=== PATIENT | male | born 1985 | race Caucasian/White ===

== ENCOUNTER 2016-10-14 17:25 | Emergency (ER) | payer MEDICAID ==
[2016-10-14 17:36] VITALS: BP 158/104
[2016-10-14] MEDS ORDERED: Ketorolac 30 MG/ML SDV IVPUSH ONE (17:37)
--- NOTE | 2016-10-14 17:39 | EDM.PDOC ---
[id number] KIDNEY STONE Time Seen by Provider: 10/14/16 17:38 Source of Information: Reports: Patient History Limitations: Reports: No limitations - History of Present Illness INITIAL COMMENTS - FREE TEXT/NARRATIVE: 30-year-old male with a history of renal stones presents with 1-1/2 hours of intense sudden onset left flank pain radiating around to the left groin. Some nausea but no vomiting. No dysuria. Onset: sudden Duration: Hour(s): (One and one half hours ago) Associated Symptoms: Reports: denies other symptoms Left Lower Abdomen Pain Score (Numeric/FACES): 10 - Related Data Allergies Allergy/AdvReac Type Severity Reaction Status Date / Time No Known Allergies Allergy Verified 10/14/16 17:37 Home Meds: Home Meds Venlafaxine HCl [Venlafaxine ER] 1 tab PO DAILY 10/12/15 [History] Gabapentin [Neurontin] 300 mg PO BID 10/14/16 [History] Meloxicam [Meloxicam] 1 tab PO DAILY 10/14/16 [History] Past Medical History - Past Health History Medical/Surgical History: Denies Medical/Surgical History Genitourinary History: Reports: Renal calculus Psychiatric History: Reports: Depression - Infectious Disease History Infectious Disease History: Reports: Chicken pox, Measles - Past Surgical History Other Musculoskeletal Surgeries/Procedures:: left thumb Social & Family History - Tobacco Use Smoking Status *Q: Never Smoker Years of Tobacco use: 10 Second Hand Smoke Exposure: No - Alcohol Use Days Per Week of Alcohol Use: 0 - Recreational Drug Use Recreational Drug Use: No - Living Situation & Occupation Living situation: Reports: Occupation: employed (lives in [place], [place].) ED ROS GENERAL - Review of Systems Review Of Systems: See Below Constitutional: Denies: fever, chills Respiratory: Denies: Shortness of Breath, Cough Cardiovascular: Denies: Chest pain GI/Abdominal: Reports: Abdominal pain, Nausea. Denies: Vomiting : Reports: flank pain, urgency Musculoskeletal: Reports: no symptoms Skin: Reports: no symptoms Neurological: Reports: No Symptoms Psychiatric: Reports: No symptoms ED EXAM, GENERAL - Physical Exam Exam: See Below Exam Limited By: No limitations General Appearance: alert, anxious, moderate distress Respiratory/Chest: no respiratory distress Cardiovascular: regular rate, rhythm GI/Abdominal: soft, non tender Neurological: alert, oriented Psychiatric: anxious Skin Exam: Warm, Dry Course - Vital Signs Last Recorded V/S: Last Vital Signs Temp 96.4 F 10/14/16 17:51 Pulse 67 10/14/16 17:51 Resp 18 10/14/16 17:51 BP 158/104 H 10/14/16 17:51 Pulse Ox 97 10/14/16 17:51 - Orders/Labs/Meds Meds: Medications Discontinued Medications Generic Name Dose Route Start Last Admin Trade Name Duane PRN Reason Stop Dose Admin Ketorolac Tromethamine 30 mg 10/14/16 17:37 10/14/16 17:46 Toradol IVPUSH 10/14/16 17:38 30 mg ONETIME ONE Administration Tamsulosin HCl 0.4 mg 10/14/16 18:14 10/14/16 18:18 Flomax PO 10/14/16 18:15 0.4 mg ONETIME ONE Administration - Re-Assessments/Exams Free Text/Narrative Re-Assessment/Exam: 10/14/16 18:17 An IV was started and the patient was given 30 mg of Toradol IV. He was sent back for a CT scan which confirmed a left distal ureteral stone with a small amount of hydronephrosis. His symptoms were almost resolved when he came back from CT, he was given one oral Flomax 0.4 mg. 10/14/16 18:45 CT confirmed a punctate stone in the distal left ureter. Patient started developing some slight pressure again so he was given 10 ketorolac doses to take orally 3 times a day as well as 10 hydrocodone for extra pain control. Encouraged him to drink lots of water, and return if worsening or concerns. Departure - Departure Time of Disposition: 19:03 Disposition: Home, Self-Care 01 Condition: good Clinical Impression: Ureteric colic Instructions: Kidney Stones, [id number] Referrals: Speedy Salcedo MD [Primary Care Provider] - Forms: ED Department Discharge Care Plan Goals: Drink lots of water, take ketorolac 10 mg every 6 hours until pain is gone and add stronger pain medication if needed. Return to ER at any time if you feel you are worsening or consider recheck in 2 days if not significantly improving.
[2016-10-14] MEDS ORDERED: Tamsulosin 0.4 MG Cap.ER PO ONE (18:14)
== END 2016-10-14 19:03 | disposition home or self-care (01) ==
LOC: JP.ED 17:25
DX: N20.1 Calculus of ureter (principal); F32.9 Major depressive disorder, single episode, unspecified; Z79.899 Other long term (current) drug therapy
CPT/HCPCS: 74176; 96374; 99284; A9270; J1885

== ENCOUNTER 2017-03-22 08:10 | Emergency (ER) | payer MEDICAID ==
[2017-03-22 08:46] VITALS: BP 159/97
--- NOTE | 2017-03-22 08:51 | EDM.PDOC ---
ED HPI GENERAL MEDICAL PROBLEM - General Chief Complaint: Upper Extremity Injury/Pain Stated Complaint: INJURY ON LEFT THUMB Time Seen by Provider: 03/22/17 08:41 Source of Information: Reports: Patient History Limitations: Reports: No Limitations - History of Present Illness INITIAL COMMENTS - FREE TEXT/NARRATIVE: pt arrived with a painful left thumb aftr catching it between the conveyer belt and the wheel. He has pain which extends all the way down into the thumb. Onset: Today Duration: Hour(s):, Other (pt is having alot of pain in the thumb. ) Location: Reports: Upper Extremity, Left left thumb Pain Score (Numeric/FACES): 9 - Related Data Allergies Allergy/AdvReac Type Severity Reaction Status Date / Time No Known Allergies Allergy Verified 10/14/16 17:37 Home Meds: Home Meds Venlafaxine HCl [Venlafaxine ER] 1 tab PO DAILY 10/12/15 [History] Gabapentin [Neurontin] 300 mg PO BID 10/14/16 [History] Meloxicam [Meloxicam] 1 tab PO DAILY 10/14/16 [History] Acetaminophen/oxyCODONE [Percocet 325-5 MG] 1 tab PO ASDIRECTED PRN 03/22/17 [ History] Past Medical History - Past Health History Medical/Surgical History: Denies Medical/Surgical History HEENT History: Reports: Impaired Vision Cardiovascular History: Reports: Hypertension Genitourinary History: Reports: Renal Calculus Psychiatric History: Reports: Depression - Infectious Disease History Infectious Disease History: Reports: Chicken Pox, Measles - Past Surgical History Other Musculoskeletal Surgeries/Procedures:: left thumb Social & Family History - Tobacco Use Smoking Status *Q: Current Every Day Smoker Years of Tobacco use: 10 Packs/Tins Daily: 0.5 Second Hand Smoke Exposure: No - Caffeine Use Caffeine Use: Reports: Coffee, Soda - Alcohol Use Days Per Week of Alcohol Use: 0 - Recreational Drug Use Recreational Drug Use: No - Living Situation & Occupation Living situation: Reports: Occupation: Employed Review of Systems - Review of Systems Review Of Systems: See Below Constitutional: Reports: No Symptoms Eyes: Reports: No Symptoms Ears: Reports: No Symptoms Nose: Reports: No Symptoms Mouth/Throat: Reports: No Symptoms Respiratory: Reports: No Symptoms Cardiovascular: Reports: No Symptoms GI/Abdominal: Reports: No Symptoms Genitourinary: Reports: No Symptoms Musculoskeletal: Reports: Other (PAIN IN THE LEFT THUMB. ) Skin: Reports: No Symptoms ED EXAM, GENERAL - Physical Exam Exam: See Below Free Text/Narrative:: PT ARRIVED WITH PAIN IN THE LEFT THUMB AFTER AN INJURY AT WORK. Exam Limited By: No Limitations General Appearance: Alert, Anxious, Mild Distress Ears: Normal TMs Nose: Normal Inspection Throat/Mouth: Normal Inspection Head: Atraumatic Neck: Normal Inspection Respiratory/Chest: No Respiratory Distress Extremities: Other (LEFT THUMB IS SWOLLEN AND IS VERY TENDER TO PALPATE AT THE mp JOINT AREA. ) Neurological: Alert, Oriented, Normal Cognition Psychiatric: Normal Affect Course - Vital Signs Last Recorded V/S: Last Vital Signs Temp 35.6 C 03/22/17 08:23 Pulse 92 03/22/17 08:23 Resp 15 03/22/17 08:23 BP 159/97 H 03/22/17 08:34 Pulse Ox 96 03/22/17 08:23 - Orders/Labs/Meds Orders: Active Orders 24 hr Category Date Time Status Hand Comp Min 3V Lt [CR] Stat Exams 03/22/17 08:40 Taken Acetaminophen/oxyCODONE [Percocet 325-5 MG] Med 03/22/17 09:37 Once 1 tab PO ONETIME ONE Meds: Medications Discontinued Medications Generic Name Dose Route Start Last Admin Trade Name Duane PRN Reason Stop Dose Admin Oxycodone/Acetaminophen 1 tab 03/22/17 09:37 Percocet 325-5 Mg PO 03/22/17 09:38 ONETIME ONE - Re-Assessments/Exams Free Text/Narrative Re-Assessment/Exam: 03/22/17 09:54 XRAY WAS OBTAINED. tHE XRAY DID NOT REVEAL ANY FRACTURE. tHE HAND WAS SPLINTED FOR COMFORT. hE WILL UASE THE SPLINT FOR THE NEXT 2 DAYS. Departure - Departure Time of Disposition: 09:26 Disposition: Home, Self-Care 01 Condition: Fair Clinical Impression: Sprain of left thumb - Discharge Information Instructions: Contusion, [id number] Referrals: Speedy Salcedo MD [Primary Care Provider] - Forms: ED Department Discharge Care Plan Goals: elevaVATE HAND, COOL PACK, TRAMODOL 50MG Q6H PRN FOR PAIN, uSE THE SPLINT FOR COMFORT FOR THE NEXT 2 DAYS THEN REMOVE AND START SOAKING IN WARM WATER , DO RANGE OF MOTION AND COOL PACK. - My Orders Last 24 Hours: My Active Orders 03/22/17 08:40 Hand Comp Min 3V Lt [CR] Stat 03/22/17 09:37 Acetaminophen/oxyCODONE [Percocet 325-5 MG] 1 tab PO ONETIME ONE - Assessment/Plan Last 24 Hours: My Active Orders 03/22/17 08:40 Hand Comp Min 3V Lt [CR] Stat 03/22/17 09:37 Acetaminophen/oxyCODONE [Percocet 325-5 MG] 1 tab PO ONETIME ONE
[2017-03-22] MEDS ORDERED: Acetaminophen/oxyCODONE 325-5 MG Tab PO ONE (09:37)
--- NOTE | 2017-03-24 09:43 | CR ---
No fracture or dislocation.
== END 2017-03-22 09:46 | disposition home or self-care (01) ==
LOC: JP.ED 08:10
DX: S63.602A Unspecified sprain of left thumb, initial encounter (principal); I10 Essential (primary) hypertension; F17.210 Nicotine dependence, cigarettes, uncomplicated; Z79.899 Other long term (current) drug therapy; W23.0XXA Caught, crushed, jammed, or pinched between moving objects, initial encounter
CPT/HCPCS: 73130; 99284; A9270; 99283

== ENCOUNTER 2018-03-18 19:35 | Emergency (ER) | payer MEDICAID ==
[2018-03-18 19:56] VITALS: BP 144/106
[2018-03-18] MEDS ORDERED: Ketorolac 60 MG/2 ML SDV IM ONE (20:10)
--- NOTE | 2018-03-18 20:16 | EDM.PDOC ---
ED HPI GENERAL MEDICAL PROBLEM - General Chief Complaint: Lower Extremity Injury/Pain Stated Complaint: RT KNEE PAIN Time Seen by Provider: 03/18/18 20:10 Source of Information: Reports: Patient, Old Records History Limitations: Reports: No Limitations - History of Present Illness INITIAL COMMENTS - FREE TEXT/NARRATIVE: 32 yo male knelt on a rock 2 days ago and has R anterior knee pain since. He did not contact his provider or take anything for the pain. Is here now for eval. Onset: Sudden Onset Date: 03/16/18 Duration: Day(s): (2), Constant Location: Reports: Lower Extremity, Right Quality: Reports: Sharp Severity: Moderate Improves with: Reports: Rest Worsens with: Reports: Movement Context: Reports: Trauma (see HPI) Associated Symptoms: Reports: No Other Symptoms Treatments CLIENT TECHNICAL PROFESSIONAL: Reports: Other (see below) (none) Right Knee Pain Score (Numeric/FACES): 8 - Related Data Allergies Allergy/AdvReac Type Severity Reaction Status Date / Time No Known Allergies Allergy Verified 03/18/18 20:09 Home Meds: Home Meds Gabapentin [Neurontin] 300 mg PO BID 10/14/16 [History] Meloxicam 1 tab PO DAILY 10/14/16 [History] Venlafaxine HCl [Venlafaxine ER] 150 mg PO DAILY 03/18/18 [History] Past Medical History - Past Health History Medical/Surgical History: Denies Medical/Surgical History HEENT History: Reports: Impaired Vision Cardiovascular History: Reports: Hypertension Genitourinary History: Reports: Renal Calculus Psychiatric History: Reports: Depression - Infectious Disease History Infectious Disease History: Reports: Chicken Pox, Measles - Past Surgical History Other Musculoskeletal Surgeries/Procedures:: left thumb Social & Family History - Caffeine Use Caffeine Use: Reports: Coffee, Soda - Living Situation & Occupation Living situation: Reports: Occupation: Employed Review of Systems - Review of Systems Review Of Systems: See Below Constitutional: Reports: No Symptoms Musculoskeletal: Reports: Other (R anterior knee pain) Skin: Reports: No Symptoms Neurological: Reports: No Symptoms ED EXAM, GENERAL - Physical Exam Exam: See Below Exam Limited By: No Limitations General Appearance: Alert, WD/WN, No Apparent Distress, Obese Extremities: Normal Inspection, Normal Range of Motion, No Pedal Edema, Other ( tender over R anterior knee). No: Non-Tender, Joint Swelling, Increased Warmth , Redness Neurological: Alert, Oriented, CN II-XII Intact, Normal Cognition, No Motor/ Sensory Deficits Psychiatric: Normal Affect, Normal Mood Skin Exam: Warm, Dry, Intact, Normal Color, No Rash Course - Vital Signs Last Recorded V/S: Last Vital Signs Temp 35.8 C 03/18/18 20:15 Pulse 118 H 03/18/18 20:15 Resp 16 03/18/18 20:15 BP 144/106 H 03/18/18 20:15 Pulse Ox 94 L 03/18/18 20:15 - Orders/Labs/Meds Orders: Active Orders 24 hr Category Date Time Status Knee 3V Rt [CR] Stat Exams 03/18/18 20:10 Ordered Meds: Medications Discontinued Medications Generic Name Dose Route Start Last Admin Trade Name Duane PRN Reason Stop Dose Admin Ketorolac Tromethamine 60 mg 03/18/18 20:10 03/18/18 20:26 Toradol IM 03/18/18 20:11 60 mg ONETIME ONE Administration - Radiology Interpretation Free Text/Narrative:: R knee [id number] Departure - Departure Time of Disposition: 20:28 Disposition: Home, Self-Care 01 Condition: Good Clinical Impression: Traumatic ecchymosis of right knee Qualifiers: Encounter type: initial encounter Qualified Code(s): S80.01XA - Contusion of right knee, initial encounter - Discharge Information *PRESCRIPTION DRUG MONITORING PROGRAM REVIEWED*: Not Applicable *COPY OF PRESCRIPTION DRUG MONITORING REPORT IN PATIENT JUAN: Not Applicable Instructions: Contusion, [id number] Referrals: Speedy Salcedo MD [Primary Care Provider] - Forms: ED Department Discharge Additional Instructions: You may take acetaminophen anytime, follow package directions. After 1 am tonight you may take either Aleve or ibuprofen per package instructions. Avoid kneeling on that right knee. Follow up with your doctor as needed. Ice the affected area several times daily. - My Orders Last 24 Hours: My Active Orders 03/18/18 20:10 Knee 3V Rt [CR] Stat - Assessment/Plan Last 24 Hours: My Active Orders 03/18/18 20:10 Knee 3V Rt [CR] Stat
[2018-03-18] MEDS ORDERED: Ketorolac 60 MG/2 ML SDV ONE (20:24)
--- NOTE | 2018-03-19 08:56 | CR ---
Knee 3V Rt CLINICAL HISTORY: Pain FINDINGS: No acute fracture or dislocation is noted. There are no osseous lesions. Articular surfaces are smooth Impression: Negative
== END 2018-03-18 21:08 | disposition home or self-care (01) ==
LOC: JP.ED 19:35
DX: S80.01XA Contusion of right knee, initial encounter (principal); I10 Essential (primary) hypertension; Z79.899 Other long term (current) drug therapy; X58.XXXA Exposure to other specified factors, initial encounter
CPT/HCPCS: 73562; 96372; 99284; J1885

== ENCOUNTER 2019-02-17 00:09 | Observation (INO) | payer MEDICAID ==
[2019-02-17] MEDS ORDERED: Ketorolac 60 MG/2 ML SDV IM ONE (00:25)
[2019-02-17] MEDS ORDERED: HYDROmorphone 1 MG/ML Syringe IVPUSH ONE ×2 (00:28→00:48)
[2019-02-17] MEDS ORDERED: Sodium Chloride 0.9% 10 ML Syringe FLUSH PRN (00:28)
[2019-02-17] MEDS ORDERED: Ketorolac 30 MG/ML SDV IVPUSH ONE (00:29)
--- NOTE | 2019-02-17 00:35 | EDM.PDOC ---
ED HPI GENERAL MEDICAL PROBLEM - General Chief Complaint: Lower Extremity Injury/Pain Stated Complaint: PAIN IN LEFT HIP Time Seen by Provider: 02/17/19 00:20 Source of Information: Reports: Patient, Old Records, RN History Limitations: Reports: No Limitations - History of Present Illness INITIAL COMMENTS - FREE TEXT/NARRATIVE: 33 yo male here with L low back pain that radiates down his L leg. Pain came on abruptly as he was getting off the couch. No hx of the same. Has had kidney stones, this feels different. Can't move his left leg or bear wt due to the pain. Onset: Sudden Onset Date: 02/16/19 Duration: Minutes:, Constant Location: Reports: Back, Lower Extremity, Left Quality: Reports: Ache, Burning Severity: Severe Improves with: Reports: Rest Worsens with: Reports: Movement Context: Reports: Other (See HPI) Associated Symptoms: Reports: Diaphoresis. Denies: Fever/Chills Treatments PROTECTIVE SERVICES OFFICER: Reports: Other (see below) (none) Left Hip Pain Score (Numeric/FACES): 10 - Related Data Allergies Allergy/AdvReac Type Severity Reaction Status Date / Time No Known Allergies Allergy Verified 03/18/18 20:09 Home Meds: Home Meds Venlafaxine HCl [Venlafaxine ER] 225 mg PO DAILY 03/18/18 [History] Gabapentin [Neurontin] 300 mg PO TID 02/17/19 [History] Past Medical History - Past Health History Medical/Surgical History: Denies Medical/Surgical History HEENT History: Reports: Impaired Vision Other HEENT History: wears glasses Cardiovascular History: Reports: Hypertension Respiratory History: Reports: Sleep Apnea Genitourinary History: Reports: Renal Calculus Musculoskeletal History: Reports: Back Pain, Chronic, Fracture Psychiatric History: Reports: Depression - Infectious Disease History Infectious Disease History: Reports: Chicken Pox, Measles - Past Surgical History GI Surgical History: Reports: Appendectomy Other GI Surgeries/Procedures: may 17 2018 Other Musculoskeletal Surgeries/Procedures:: left thumb, right elbow Social & Family History - Family History Family Medical History: Noncontributory - Tobacco Use Smoking Status *Q: Current Every Day Smoker Years of Tobacco use: 15 Packs/Tins Daily: 0.5 - Caffeine Use Caffeine Use: Reports: None - Recreational Drug Use Recreational Drug Use: No - Living Situation & Occupation Living situation: Reports: Occupation: Employed Review of Systems - Review of Systems Review Of Systems: See Below Constitutional: Reports: Diaphoresis Musculoskeletal: Reports: Back Pain, Leg Pain (radiates down the L leg.) Skin: Reports: Diaphoresis (sweating from the pain) Neurological: Reports: Gait Disturbance (Can't walk due to the pain.) ED EXAM, GENERAL - Physical Exam Exam: See Below Exam Limited By: Other (Severe pain, morbid obesity) General Appearance: Alert, WD/WN, Moderate Distress, Obese Eye Exam: Bilateral Eye: Normal Inspection Ears: Normal External Exam, Normal Canal, Hearing Grossly Normal Ear Exam: Bilateral Ear: Auricle Normal, Canal Normal Nose: Normal Inspection, No Blood Throat/Mouth: Normal Inspection, Normal Lips, Normal Oropharynx, Normal Voice, No Airway Compromise Head: Atraumatic, Normocephalic Neck: Normal Inspection Respiratory/Chest: No Respiratory Distress, Lungs Clear, Normal Breath Sounds, No Accessory Muscle Use Cardiovascular: Regular Rate, Rhythm, No Edema Back Exam: Normal Inspection, Paraspinal Tenderness (L paraspinous), Vertebral Tenderness (lumbar). No: CVA Tenderness (R), CVA Tenderness (L) Extremities: Normal Inspection, Normal Range of Motion, Non-Tender, No Pedal Edema Neurological: Alert, Oriented, CN II-XII Intact, Normal Cognition, No Motor/ Sensory Deficits Psychiatric: Normal Affect, Normal Mood, Anxious Skin Exam: Warm, Intact, Normal Color, No Rash, Diaphoretic (sweating) Course - Vital Signs Text/Narrative:: Dr. Matias hurt @ 566 Last Recorded V/S: Last Vital Signs Temp 35.9 C 02/17/19 00:18 Pulse 105 H 02/17/19 00:18 Resp 20 02/17/19 00:18 BP Pulse Ox 98 02/17/19 00:18 - Orders/Labs/Meds Orders: Active Orders 24 hr Category Date Time Status Sodium Chloride 0.9% [Saline Flush] Med 02/17/19 00:28 Active 10 ml FLUSH ASDIRECTED PRN Saline Lock Insert [OM.PC] Routine Oth 02/17/19 00:28 Ordered Medication Orders Sodium Chloride (Saline Flush) 10 ml FLUSH ASDIRECTED PRN PRN Reason: Keep Vein Open Last Admin: 02/17/19 00:38 Dose: 10 ml Meds: Medications Generic Name Dose Route Start Last Admin Trade Name Aryanq PRN Reason Stop Dose Admin Sodium Chloride 10 ml 02/17/19 00:28 02/17/19 00:38 Saline Flush FLUSH 10 ml ASDIRECTED PRN Administration Keep Vein Open Discontinued Medications Generic Name Dose Route Start Last Admin Trade Name Duane PRN Reason Stop Dose Admin Hydromorphone HCl 1 mg 02/17/19 00:28 02/17/19 00:42 Dilaudid IVPUSH 02/17/19 00:29 1 mg ONETIME ONE Administration Hydromorphone HCl 1 mg 02/17/19 00:48 Dilaudid IVPUSH 02/17/19 00:49 ONETIME ONE Ketorolac Tromethamine 60 mg 02/17/19 00:25 02/17/19 00:41 Toradol IM 02/17/19 00:26 Not Given ONETIME ONE Ketorolac Tromethamine 30 mg 02/17/19 00:29 02/17/19 00:39 Toradol IVPUSH 02/17/19 00:30 30 mg ONETIME ONE Administration - Radiology Interpretation Free Text/Narrative:: lumar spine X-rays-loss of normal lumbar lordosis Departure - Departure Time of Disposition: 01:40 Disposition: Refer to Observation Condition: Fair Clinical Impression: Intractable low back pain Low back pain Qualifiers: Chronicity: acute Back pain laterality: left Sciatica presence: with sciatica Sciatica laterality: sciatica of left side Qualified Code(s): M54.42 - Lumbago with sciatica, left side - Discharge Information *PRESCRIPTION DRUG MONITORING PROGRAM REVIEWED*: No *COPY OF PRESCRIPTION DRUG MONITORING REPORT IN PATIENT JUAN: No Referrals: Speedy Salcedo MD [Primary Care Provider] - Forms: ED Department Discharge - My Orders Last 24 Hours: My Active Orders 02/17/19 00:28 Sodium Chloride 0.9% [Saline Flush] 10 ml FLUSH ASDIRECTED PRN Saline Lock Insert [OM.PC] Routine - Assessment/Plan Last 24 Hours: My Active Orders 02/17/19 00:28 Sodium Chloride 0.9% [Saline Flush] 10 ml FLUSH ASDIRECTED PRN Saline Lock Insert [OM.PC] Routine
--- NOTE | 2019-02-17 01:07 | CRLCR ---
INDICATION: Low back pain with radiation TECHNIQUE: Lumbar spine radiograph 3 views COMPARISON: None FINDINGS: Moderate degradation of image quality noted due to body habitus. Bone: No acute fractures or aggressive bone lesions are identified. Alignment is normal. Disc: The disc spaces are unremarkable in appearance. The facet joints are unremarkable. Soft tissue: Unremarkable. No radiopaque foreign bodies are seen. IMPRESSION: 1. No acute osseous injuries or abnormalities are noted. Dictated by: Jan Lemus MD @ 02/17/2019 01:05:41 (Electronically Signed)
[2019-02-17] MEDS ORDERED: Acetaminophen 325 MG Tab PO PRN (02:25)
[2019-02-17] MEDS: oxyCODONE 5 MG Tab PO PRN ×2 (03:03→07:53)
[2019-02-17 03:15] VITALS: BP 149/82; PULSE 86
--- NOTE | 2019-02-17 04:23 | HP ---
IDENTIFYING DATA: Shayne Terry is a 33-year-old male from [place]. CHIEF COMPLAINT: Low back and left leg pain. HISTORY OF PRESENT ILLNESS: Adult male without a history of chronic lumbar spine disease. Reports he was rising from a chair this evening at approximately 2100 hours when he noted sudden onset of severe pain across the mid lumbar area with radiating paresthesias to the anterior thigh, tibial face and dorsum of the foot. He has intense spastic pain. He has difficulty with weightbearing and ambulation. Denies right-sided symptoms. He has had no bowel or bladder disruption for reasons of increasing pain, unresponsive to use of over-the- counter analgesics. He presented to the emergency room and is now admitted for pain management attempts. PAST MEDICAL HISTORY: He has noted history of chronic dysthymic syndrome with use of antidepressant therapy. Additionally, he has had chronic arm pain followed by [facility]. He has had previous right elbow surgery and remains on gabapentin at a dose of 300 mg t.i.d. HABITS: Smoker of one half pack per day. Moderate caffeinated beverage intake. Alcohol use of less than 1 drink daily. PREVIOUS SURGICAL PROCEDURES: Include appendectomy, left thumb surgery and right elbow surgery. CURRENT MEDICATIONS: 1. Venlafaxine extended release 225 mg daily. 2. Gabapentin 300 mg p.o. t.i.d. ALLERGIES: NONE NOTED. 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 His significant other accompanies him today. FAMILY HISTORY: Noncontributory. REVIEW OF SYSTEMS: NEUROLOGIC: Chronic paresthesias in the right arm. Has had surgical procedures completed by [facility]. No history of strokes, seizures, or chronic lumbar spine disease. CARDIAC: No history of hypertension, diabetes, congenital heart disease, AL, chest pain or palpitations. RESPIRATORY: Chronic tobacco use. No history of COPD, chronic shortness of breath, or recent URI or tuberculosis. GASTROINTESTINAL: Denies dyspepsia, nausea, emesis, or bowel changes. GENITOURINARY: No nocturia. No history of chronic renal disease. PHYSICAL EXAMINATION: GENERAL: Appearance is that of an adult male in moderate distress secondary to back pain, lying still in bed. VITAL SIGNS: Temperature of 35.9 degrees centigrade, pulse 105, respiratory rate 20 and O2 saturations 98% on room air. HEENT: Hearing is intact. Pupils reactive to light. Sclerae anicteric. Extraocular eye movements intact. No nasal congestion. No facial asymmetries. No oropharyngeal lesions or dental appliances. NECK: No stridor or nuchal rigidity. Brisk carotid pulses. No bruits. LUNGS: Symmetrical and clear. Non-tachypneic. HEART: Sounds are regular without murmurs, gallops, or rubs. ABDOMEN: Obese, soft, nontender, and nondistended. No organomegaly noted. No guarding or rebound. Active sounds heard. Good femoral pulses. MUSCULOSKELETAL: He has percussion tenderness over the mid lumbar area. Lower extremities, good femoral pulses. No pitting edema. Posterior tibial and dorsal pedal pulses are also intact. Brisk and symmetrical patellar DTRs. He has low back and radiating left leg pain with plantarflexion at the left ankle. He has symmetrical dorsiflexion of the great toes bilaterally. Normal sensation. Subjective intermittent episodes of radiating sciatic pain extending to the dorsum of the left foot. No fasciculations are evident. Straight leg raising is positive on the left at less than 45 degrees. IMAGING STUDIES: Standard radiographic films of the lumbar spine, no acute bony injury reported. IMPRESSION: 1. Sudden onset of low back pain with left-sided sciatic radiation pain suggesting lumbar vertebral disk disease. 2. History of chronic dysthymic syndrome. 3. Chronic right arm pain, currently on low-dose gabapentin therapy. PLAN: The patient is admitted to observation status for assistance with performance of ADLs and pain control. We will increase gabapentin 600 mg p.o. t.i.d., short-term use of oxycodone 10 mg q.4 hours p.r.n. is instituted as well as cyclobenzaprine 10 mg t.i.d. Ice packs to the lumbar spine will be provided by nursing staff. Consult Physical therapy services for gentle stretching and [id number] exercises. The patient has a history of morbid obesity and given the size, the local MRI scanner will not accommodate him therefore likely will require a referral out of town for outpatient imaging of the lumbar spine. We will anticipate discharge to home when able to ambulate and perform ADLs capability. In the interim, we will maintain full code status. Routine vitals and standard diet. Nursing assistance with ambulation. Vincent Salcedo MD /[id number]
[2019-02-17] MEDS ORDERED: Cyclobenzaprine 10 MG Tab PO SCH (09:00)
[2019-02-17] MEDS ORDERED: Venlafaxine 75 MG Cap.ER PO SCH (09:00)
[2019-02-17] MEDS ORDERED: Gabapentin 300 MG Cap PO SCH (09:00)
--- NOTE | 2019-02-18 08:12 | DISCH ---
REASON FOR ADMISSION: Adult male without a history of chronic lumbar spine disease, was rising from a seated position on the evening of 02/16/2019, when he had sudden onset of severe piercing mid lumbar back pain with radiating sciatica symptoms to the distal left leg and foot with intractable back pain. He had difficulty with ambulation. He had no right- sided symptoms. No bowel or bladder dysfunction. He has had no history of previous or similar occurrence. He, therefore, presented to the emergency room for evaluation, and with persistent severe pain and stated inability to care for self, he was admitted for pain management. PHYSICAL EXAMINATION: VITAL SIGNS: On admission, vital signs stable. Appearance is that of an adult male in moderate distress secondary to recurrent spastic low back pain with movement and radiating sciatica pain in the left leg. NECK: No adenopathy or thyromegaly. HEART: Normal to exam. LUNGS: Normal to exam. ABDOMEN: Markedly obese, soft, and nontender. No organomegaly. EXTREMITIES: Good pulses. No fasciculations. Symmetrical patellar DTRs. Some weakness with dorsiflexion of the left great toe. Noted paresthesias extending over the anterior thigh, tibial face, and dorsum of the left foot by patient's report. IMAGING DATA: Standard radiographic films of lumbar spine did not show evidence of acute injury. HOSPITAL COURSE: Shayne was admitted with severe back pain with left sciatica, suggesting nerve impingement. He was managed with administration of analgesic therapy. Of note, he does have a history of right elbow pain followed by hand specialty services and has been on gabapentin for pain management. Gabapentin while hospitalized was increased to 600 mg t.i.d. Additionally, he was provided cyclobenzaprine, oxycodone on a p.r.n. basis and ice packs to the back. He was assisted gingerly to the bathroom to void and was able to rise from bed with moderate discomfort. On the morning of admission, Physical Therapy services evaluated and recommended ongoing PT services. Given patient's morbid obesity and weight of greater than 400 pounds, he is not able to obtain MR imaging at the local scanner with the weight restrictions being surpassed. Therefore, an outpatient imaging at an alternate site is anticipated. DISPOSITION: Home with family on 02/17/2019. CONDITION: Unchanged. ACTIVITY: Up and ambulating about the house as tolerated. No work until severe back pain decreases and allows return to his outlined activities. DISCHARGE INSTRUCTIONS: 1. Standard diet. 2. We will obtain followup MRI of the lumbar spine at [facility] in [place]. 3. Continue with outpatient physical therapy services at [facility]. MEDICATIONS: 1. Venlafaxine 225 mg daily. 2. Gabapentin increased to 600 mg t.i.d. 3. Oxycodone 10 mg q.4 hours p.r.n. pain, 60 dispensed. 4. Cyclobenzaprine 10 mg p.o. t.i.d. ADMITTING DIAGNOSES: 1. Severe lumbar back pain, sudden onset with radiating left-sided sciatica, suggesting nerve impingement. 2. Morbid obesity. 3. Chronic right elbow pain. DISCHARGE DIAGNOSES: 1. Severe lumbar back pain, sudden onset with radiating left-sided sciatica, suggesting nerve impingement. 2. Morbid obesity. 3. Chronic right elbow pain.
== END 2019-02-17 10:54 | disposition home or self-care (01) ==
LOC: JP.ED 00:09 → JP.ICU 01:37
PROVIDERS: ADMIT Family Medicine; ATTEND Family Medicine
DX: M54.42 Lumbago with sciatica, left side (principal); G89.29 Other chronic pain; M25.521 Pain in right elbow; R26.2 Difficulty in walking, not elsewhere classified; F34.1 Dysthymic disorder; F17.210 Nicotine dependence, cigarettes, uncomplicated; I10 Essential (primary) hypertension; E66.01 Morbid (severe) obesity due to excess calories; Z68.42 Body mass index [BMI] 45.0-49.9, adult; Z98.890 Other specified postprocedural states; Z79.899 Other long term (current) drug therapy
CPT/HCPCS: 72100; 96374; 96375; 96376; 97161; 99284; A9270; J1170; J1885; G0378

== ENCOUNTER 2020-02-02 10:22 | Emergency (ER) | payer SELFPAY ==
[2020-02-02 11:05] VITALS: BP 149/100; PULSE 75
[2020-02-02] MEDS ORDERED: Ketorolac 60 MG/2 ML SDV IM ONE (11:26)
--- NOTE | 2020-02-02 11:31 | EDM.PDOC ---
ED HPI GENERAL MEDICAL PROBLEM - General Chief Complaint: Lower Extremity Injury/Pain Stated Complaint: PAIN IN LEFT ANKEL Time Seen by Provider: 02/02/20 11:15 Source of Information: Reports: Patient, Old Records History Limitations: Reports: No Limitations - History of Present Illness INITIAL COMMENTS - FREE TEXT/NARRATIVE: 34 yo male presents with several days of progressive L ankle pain not associated with injury. Has not attempted to be seen by his primary. Has not seen his primary in a long time. Also reports toe numbness. Thinks ankle is slightly swollen. No hx of gout or DM. No self tx. Onset: Gradual Duration: Day(s):, Getting Worse Location: Reports: Lower Extremity, Left Quality: Reports: Ache Severity: Moderate Improves with: Reports: Rest Worsens with: Reports: Movement (or weight bearing) Context: Reports: Other (see HPI) Associated Symptoms: Reports: No Other Symptoms Treatments [employer]: Reports: Other (see below) (none) Left Ankle Pain Score (Numeric/FACES): 9 - Related Data Allergies Allergy/AdvReac Type Severity Reaction Status Date / Time No Known Allergies Allergy Verified 02/17/19 02:17 Home Meds: Home Meds Acetaminophen [Tylenol] 650 mg PO Q4H PRN tablet 02/17/19 [Rx] Escitalopram [Lexapro] 20 mg PO DAILY 02/02/20 [History] Past Medical History - Past Health History Medical/Surgical History: Denies Medical/Surgical History HEENT History: Reports: Impaired Vision Other HEENT History: wears glasses Cardiovascular History: Reports: Hypertension Respiratory History: Reports: Sleep Apnea Genitourinary History: Reports: Renal Calculus Musculoskeletal History: Reports: Back Pain, Chronic, Fracture Psychiatric History: Reports: Depression - Infectious Disease History Infectious Disease History: Reports: Chicken Pox, Measles - Past Surgical History GI Surgical History: Reports: Appendectomy Other GI Surgeries/Procedures: may 17 2018 Other Musculoskeletal Surgeries/Procedures:: left thumb, right elbow Social & Family History - Family History Family Medical History: Noncontributory - Tobacco Use Packs/Tins Daily: 3 - Caffeine Use Caffeine Use: Reports: Soda - Recreational Drug Use Recreational Drug Use: No - Living Situation & Occupation Living situation: Reports: Occupation: Employed Review of Systems - Review of Systems Review Of Systems: See Below Constitutional: Reports: No Symptoms Musculoskeletal: Reports: Foot Pain (L foot), Joint Pain (L ankle), Joint Swelling (L ankle) Skin: Reports: No Symptoms Neurological: Reports: Numbness (toes on L foot) ED EXAM, GENERAL - Physical Exam Exam: See Below Exam Limited By: Other General Appearance: Alert, WD/WN, Obese Extremities: Normal Inspection, Pedal Edema (trace at most), Limited Range of Motion (due to pain), Other (tender just about everywhere he is touched on the L foot and ankle.). No: Normal Range of Motion, Non-Tender, No Pedal Edema, Increased Warmth, Redness Neurological: Alert, Oriented, CN II-XII Intact, Normal Cognition Psychiatric: Normal Affect, Normal Mood Skin Exam: Warm, Dry, Intact, Normal Color, No Rash Course - Vital Signs Last Recorded V/S: Last Vital Signs Temp 34.8 C L 02/02/20 11:07 Pulse 75 02/02/20 11:07 Resp 16 02/02/20 11:07 BP 149/100 H 02/02/20 11:07 Pulse Ox 96 02/02/20 11:07 - Orders/Labs/Meds Orders: Active Orders 24 hr Category Date Time Status Ankle Min 3V Lt [CR] Stat Exams 02/02/20 11:25 Taken Labs: Laboratory Tests 02/02/20 Range/Units 11:38 Sodium 141 (140-148) mmol/L Potassium 4.5 (3.6-5.2) mmol/L Chloride 104 (100-108) mmol/L Carbon Dioxide 28 (21-32) mmol/L Anion Gap 8.8 (5.0-14.0) mmol/L BUN 9 (7-18) mg/dL Creatinine 1.0 (0.8-1.3) mg/dL Est Cr Clr Drug Dosing 127.79 mL/min Estimated GFR (MDRD) > 60 (>60) Glucose 95 (74-106) mg/dL Calcium 8.9 (8.5-10.1) mg/dL C-Reactive Protein 0.59 H (0.0-0.3) mg/dL Meds: Medications Discontinued Medications Generic Name Dose Route Start Last Admin Trade Name Freq PRN Reason Stop Dose Admin Ketorolac Tromethamine 60 mg 02/02/20 11:26 02/02/20 11:45 Toradol IM 02/02/20 11:27 60 mg ONETIME ONE Administration - Radiology Interpretation Free Text/Narrative:: L ankle X-ray-neg Departure - Departure Time of Disposition: 12:40 Disposition: Home, Self-Care 01 Condition: Fair Clinical Impression: Left ankle pain Qualifiers: Chronicity: acute Qualified Code(s): M25.572 - Pain in left ankle and joints of left foot - Discharge Information *PRESCRIPTION DRUG MONITORING PROGRAM REVIEWED*: No *COPY OF PRESCRIPTION DRUG MONITORING REPORT IN PATIENT JUAN: No Instructions: Ankle Pain Referrals: Speedy Salcedo MD [Primary Care Provider] - Forms: ED Department Discharge Additional Instructions: Use crutches to take weight off your foot/ankle. Take the Rx given as directed. F/U with Dr. Salcedo, call for an appt. Sepsis Event Note (ED) - Evaluation Sepsis Screening Result: No Definite Risk - Focused Exam Vital Signs: Vital Signs Temp Pulse Resp BP Pulse Ox 02/02/20 11:07 34.8 C L 75 16 149/100 H 96 02/02/20 11:03 34.8 C L 75 16 149/100 H 96 - My Orders Last 24 Hours: My Active Orders 02/02/20 11:25 Ankle Min 3V Lt [CR] Stat - Assessment/Plan Last 24 Hours: My Active Orders 02/02/20 11:25 Ankle Min 3V Lt [CR] Stat
--- NOTE | 2020-02-02 14:14 | CR ---
Ankle Min 3V Lt CLINICAL HISTORY: Pain, no known injury FINDINGS: The soft tissues are normal. No acute fracture or dislocation is noted. Ankle mortise is intact. Articular surfaces are smooth. There are small calcific or ossific type densities just posterior to the tibiotalar joint. This could feasibly represent some loose bodies or possibly small secondary ossification centers. Impression: No fracture or dislocation Small opacities posterior to the tibiotalar joint are described above
== END 2020-02-02 12:59 | disposition home or self-care (01) ==
LOC: JP.ED 10:22
DX: M25.572 Pain in left ankle and joints of left foot (principal); I10 Essential (primary) hypertension; F32.9 Major depressive disorder, single episode, unspecified; Z79.899 Other long term (current) drug therapy
CPT/HCPCS: 36415; 73610; 80048; 86140; 96372; 99283; J1885

== ENCOUNTER 2020-02-28 13:13 | Emergency (ER) | payer OTHER ==
[2020-02-28 13:31] VITALS: BP 147/104; PULSE 114
[2020-02-28] MEDS ORDERED: Morphine 2 MG/ML SYRINGE IVPUSH ONE ×2 (13:40→15:47)
[2020-02-28] MEDS ORDERED: Ketorolac 30 MG/ML SDV IVPUSH ONE (13:41)
[2020-02-28] MEDS ORDERED: Cyclobenzaprine 10 MG Tab PO ONE (13:41)
[2020-02-28] MEDS ORDERED: Ondansetron 4 MG/2 ML SDV IVPUSH ONE (13:41)
--- NOTE | 2020-02-28 13:48 | EDM.PDOC ---
ED HPI GENERAL MEDICAL PROBLEM - General Chief Complaint: Back Pain or Injury Stated Complaint: LOWER BACK PAIN Time Seen by Provider: 02/28/20 13:15 Source of Information: Reports: Patient History Limitations: Reports: No Limitations - History of Present Illness INITIAL COMMENTS - FREE TEXT/NARRATIVE: 34 yo male present to the emergency room with severe lumbar back pain. He was fine this AM and he bent over without lifting and felt a pop in the lumber back and severe pain. Initially numbness bilateral legs but that has resolved. Denies current radiating pain or numbness, saddle numbness, loss of bowel or bladder. No trauma or injury to back no past injury to lumbar back. Lower Back Pain Score (Numeric/FACES): 10 - Related Data Allergies Allergy/AdvReac Type Severity Reaction Status Date / Time No Known Allergies Allergy Verified 02/17/19 02:17 Home Meds: Home Meds Acetaminophen [Tylenol] 650 mg PO Q4H PRN tablet 02/17/19 [Rx] Escitalopram [Lexapro] 20 mg PO DAILY 02/02/20 [History] Naproxen Sodium [Anaprox DS] 550 mg PO BID #14 tab 02/02/20 [Rx] Past Medical History - Past Health History Medical/Surgical History: Denies Medical/Surgical History HEENT History: Reports: Impaired Vision Other HEENT History: wears glasses Cardiovascular History: Reports: Hypertension Respiratory History: Reports: Sleep Apnea Genitourinary History: Reports: Renal Calculus Musculoskeletal History: Reports: Back Pain, Chronic, Fracture Psychiatric History: Reports: Depression - Infectious Disease History Infectious Disease History: Reports: Chicken Pox, Measles - Past Surgical History GI Surgical History: Reports: Appendectomy Other GI Surgeries/Procedures: may 17 2018 Other Musculoskeletal Surgeries/Procedures:: left thumb, right elbow Social & Family History - Family History Family Medical History: Noncontributory - Tobacco Use Smoking Status *Q: Current Every Day Smoker Years of Tobacco use: 15 Packs/Tins Daily: 0.5 - Caffeine Use Caffeine Use: Reports: None - Recreational Drug Use Recreational Drug Use: No - Living Situation & Occupation Living situation: Reports: Occupation: Employed ED ROS GENERAL - Review of Systems Review Of Systems: See Below Constitutional: Denies: Fever, Chills Respiratory: Denies: Shortness of Breath, Wheezing Cardiovascular: Denies: Chest Pain Musculoskeletal: Reports: Back Pain ED EXAM,LOWER BACK PAIN/INJURY - Physical Exam Exam: See Below Exam Limited By: No Limitations General Appearance: Alert, WD/WN, No Apparent Distress Respiratory/Chest: No Respiratory Distress, Lungs Clear, Normal Breath Sounds. No: Crackles, Rhonchi, Wheezing Cardiovascular: Regular Rate, Rhythm, No Murmur GI/Abdominal: Soft, Non-Tender Neurological: Alert, Abnormal Gait, Difficulty Walking, Other (lumbar back pain at belt line, ROM limited by pain, straight leg was positive, left leg numbness and pain). No: Saddle Anesthesia Psychiatric: Normal Affect, Normal Mood Skin Exam: Warm, Dry, Intact Course - Vital Signs Last Recorded V/S: Last Vital Signs Temp 35.1 C L 02/28/20 13:41 Pulse 114 H 02/28/20 13:41 Resp 18 02/28/20 13:41 BP 147/104 H 02/28/20 13:41 Pulse Ox 96 02/28/20 13:41 - Orders/Labs/Meds Meds: Medications Discontinued Medications Generic Name Dose Route Start Last Admin Trade Name Duane PRN Reason Stop Dose Admin Cyclobenzaprine HCl 10 mg 02/28/20 13:41 02/28/20 13:58 Flexeril PO 02/28/20 13:42 10 mg ONETIME ONE Administration Ketorolac Tromethamine 30 mg 02/28/20 13:41 02/28/20 13:56 Toradol IVPUSH 02/28/20 13:42 30 mg ONETIME ONE Administration Morphine Sulfate 1 mg 02/28/20 13:40 02/28/20 13:56 Morphine IVPUSH 02/28/20 13:41 1 mg ONETIME ONE Administration Morphine Sulfate 1 mg 02/28/20 15:47 02/28/20 15:50 Morphine IVPUSH 02/28/20 15:48 1 mg ONETIME ONE Administration Ondansetron HCl 4 mg 02/28/20 13:41 02/28/20 13:58 Zofran IVPUSH 02/28/20 13:42 4 mg ONETIME ONE Administration - Radiology Interpretation Free Text/Narrative:: no acute abnormalities on both lumbar and sacral x-rays. - Re-Assessments/Exams Free Text/Narrative Re-Assessment/Exam: 02/28/20 16:06 pain has improved but not resolved he continues it have intermittent pain/numbness of the left leg Departure - Departure Time of Disposition: 15:56 Disposition: Home, Self-Care 01 Condition: Fair Clinical Impression: Lumbar back pain, Left sciatic nerve pain - Discharge Information *PRESCRIPTION DRUG MONITORING PROGRAM REVIEWED*: Yes *COPY OF PRESCRIPTION DRUG MONITORING REPORT IN PATIENT JUAN: No Instructions: Acute Back Pain, Adult Referrals: Speedy Salcedo MD [Primary Care Provider] - Forms: ED Department Discharge Additional Instructions: Rest with light stretching over the next 3 days etodolac 400 mg every 8 hours scheduled for the next 5 days then as needed thereafter. Do not take other NSAIDs while taking this medication. Have food in your stomach when you are taking this medication Cyclobenzaprine up to 3 times daily for spasms Percocet 5/325 for severe pain every 8 hours follow-up with primary care if you have not improved by the end of the week Ice as much as possible over the next 3 days you may also benefit from a chiropractic adjustment Sepsis Event Note (ED) - Evaluation Sepsis Screening Result: No Definite Risk - Focused Exam Vital Signs: Vital Signs Temp Pulse Resp BP Pulse Ox 02/28/20 13:41 35.1 C L 114 H 18 147/104 H 96 02/28/20 13:30 35.1 C L 114 H 18 147/104 H 96
--- NOTE | 2020-02-28 15:36 | CR ---
Lumbar Spine 2 or 3V, Sacroiliac Joint 2V CLINICAL HISTORY: Pain FINDINGS: The vertebral body heights are maintained. Disc spaces are fairly well-maintained. Alignment is intact. Spinous and transverse processes appear intact. IMPRESSION: Negative Lumbar Spine 2 or 3V, Sacroiliac Joint 2V CLINICAL HISTORY: Back pain FINDINGS: AP and oblique views of the sacroiliac joints were obtained bilaterally. The sacroiliac joints are well visualized. There is no evidence of narrowing or erosion. There is no evidence of significant bone sclerosis. No destructive bone lesions are present. IMPRESSION: Normal study.
== END 2020-02-28 16:10 | disposition home or self-care (01) ==
LOC: JP.ED 13:13
DX: M54.42 Lumbago with sciatica, left side (principal); I10 Essential (primary) hypertension; F32.9 Major depressive disorder, single episode, unspecified; F17.210 Nicotine dependence, cigarettes, uncomplicated; Z90.49 Acquired absence of other specified parts of digestive tract; Z79.899 Other long term (current) drug therapy
CPT/HCPCS: 72100; 72200; 96374; 96375; 96376; 99283; A9270; J1885; J2270; J2405; 99284

== ENCOUNTER 2023-04-07 16:54 | Emergency (ER) | payer BC, MEDICAID ==
[2023-04-07 17:10] VITALS: BP 141/88; PULSE 79
[2023-04-07] MEDS ORDERED: Albuterol/Ipratropium 3.0-0.5 MG/3 ML Neb Soln NEB ONE (17:32)
[2023-04-07 18:02] LABS: BASOPHILS ABSOLUTE AUTO 0.09 K/uL (0.00-0.10); BASOPHILS PERCENT AUTO 0.8 % (0.1-1.3); EOSINOPHILS ABSOLUTE AUTO 0.27 K/uL (0.00-0.40); EOSINOPHILS PERCENT AUTO 2.3 % (0.0-5.4); HEMATOCRIT 42.2 % (38.4-49.7); HEMOGLOBIN 13.6 g/dL (12.9-16.9); IMMATURE GRAN ABSOLUTE AUTO 0.19 K/uL (0.00-0.23); IMMATURE GRAN PERCENT AUTO 1.6 % (0.0-0.7); LYMPHOCYTES ABSOLUTE AUTO 2.94 K/uL (0.8-3.3); LYMPHOCYTES PERCENT AUTO 25.3 % (11.4-47.7); MEAN CORPUSCULAR HEMOGLOBIN 26.3 pg (31.6-35.5); MEAN CORPUSCULAR HGB CONC 32.2 g/dL (31.6-35.5); MEAN CORPUSCULAR VOLUME 81.6 fL (81.4-99.0); MONOCYTES ABSOLUTE AUTO 0.93 K/uL (0.20-0.90); PLATELET COUNT,PLT 297 K/uL (130-375); RED BLOOD CELL COUNT 5.17 M/uL (4.14-5.76); WHITE BLOOD CELL COUNT,WBC 11.6 K/uL (3.2-11.0)
[2023-04-07] MEDS ORDERED: Ketorolac 30 MG/ML SDV IM ONE (18:18)
[2023-04-07 18:20] LABS: CALCIUM 8.8 mg/dL (8.5-10.1); CREATININE 0.8 mg/dL (0.8-1.3); EST CRCL DRUG DOSING (CG) 155.22 mL/min
== END 2023-04-07 18:54 | disposition home or self-care (01) ==
LOC: JP.ED 16:54
DX: R06.02 Shortness of breath (principal)
CPT/HCPCS: 36415; 80048; 85025; 94640; 96372; 99285; J1885; J7620